=== PATIENT | male | born 1965 | race Hispanic/Latino ===

== ENCOUNTER 2025-10-07 10:34 | Emergency (ER) | payer MEDICAID, SELFPAY ==
[2025-10-07] MEDS ORDERED: Bupivacaine/Epinephrine 0.25% 30 ML VIAL ONE (12:34)
[2025-10-07] MEDS ORDERED: PROPOFOL 20 ML ONE (12:36)
[2025-10-07] MEDS ORDERED: Famotidine/PF 20 mg/2ml Vial ONE (12:43)
[2025-10-07] MEDS ORDERED: CEFAZOLIN 1 GM VIAL ONE (13:13)
[2025-10-07] MEDS ORDERED: HYDROcodone/Acetaminophen 5/325 mg Tablet ONE (14:27)
== END 2025-10-07 13:14 | disposition admitted as inpatient to this hospital (09) ==
LOC: CSHERS 10:34
DX: Z49.01 Encounter for fitting and adjustment of extracorporeal dialysis catheter (principal); I13.2 Hypertensive heart and chronic kidney disease with heart failure and with stage 5 chronic kidney disease, or end stage renal disease; E11.22 Type 2 diabetes mellitus with diabetic chronic kidney disease; N18.6 End stage renal disease; I50.9 Heart failure, unspecified; I48.91 Unspecified atrial fibrillation; Z87.891 Personal history of nicotine dependence; Z79.01 Long term (current) use of anticoagulants; Z79.4 Long term (current) use of insulin; Z79.899 Other long term (current) drug therapy
CPT/HCPCS: 36416; 71045; C1752; J0690; J1308; J1642; J2704